=== PATIENT | male | born 1960 | race Caucasian/White ===

== ENCOUNTER 2021-12-15 17:34 | Day surgery (SDC) | payer OTHER, MEDICARE, SELFPAY ==
[2021-12-15] VITALS (11 sets, daily range): BP systolic 101–162; BP diastolic 58–101; PULSE 86–102; RESP 16–22; TEMP 36.2–36.6; O2SAT 93–100; BMI 28.7
--- NOTE | 2021-12-15 17:59 | ED_ITS ---
Documented by User: Patrick So MD 12/17/21 14:02 HPI - General Adult General: Chief complaint: General Medical Stated complaint: feels like something stuck in esophagus Time Seen by Provider: 12/15/21 17:45 History of Present Illness: 61-year-old male presents emergency room after experiencing foreign object sensation in the back of his throat and drooling from eating German food. Patient so that took a bite of times with think that there is piece of bone that is lodged in the back of his throat. Patient says that she is no longer able to swallow. Patient reports mild shortness of breath. Patient while in the emergency room coughed up a piece of the bone. No signs of hemoptysis, or hematemesis. Patient continued to be satting well. Has any other complaints at this time Onset: 30 minutes ago Duration:ongoing Location:home Severity:moderate Associated symptoms: Deny chest pain, dyspnea, nausea, rash, palpitations or vomiting Review of Systems Const: Denies: fever(s) or chills Eyes: Denies: change in vision ENMT: Reports: other (+throat pain and drooling); Denies: mouth pain Card: Denies: chest pain or palpitations Resp: Denies: dyspnea or non-productive cough GI: Denies: abdominal pain, nausea, vomiting or diarrhea : Denies: dysuria Musc: Denies: extremity pain Skin/Breast: Denies: rash or new lesions Neuro: Denies: weakness in extremities Psych: Reports: other (Normal mood) Arron/Lymph: Denies: easy bruising PFS ED PFSH: Medical History No active medical problems Surgical History H/O esophagogastroduodenoscopy (12/15/21) disimpaction of food bolus Social History Smoking and tobacco status: never smoked Alcohol intake: never Substance/Drug Use: never Physical Exam Const: COMMON NORMALS: alert HENMT: COMMON NORMALS: atraumatic HEAD & SCALP: atraumatic MOUTH: moist mucous membranes not abnormal OTHER: +drooling, no posterior oropharygneal foreign objects Eye: COMMON NORMALS: EOMs intact bilaterally and conjunctivae normal CONJUNCTIVA: Yes conjunctivae normal Neck/C-Spine: COMMON NORMALS: full ROM and supple Resp: COMMON NORMALS: normal respiratory effort and clear to auscultation bilaterally AUSCULTATION: clear to auscultation bilaterally Cardio: COMMON NORMALS: regular rate RATE: regular rate GI: COMMON NORMALS: Soft to palpation and non-tender PALPATION: Yes Soft to palpation Extremity: COMMON NORMALS: full ROM Neuro: SENSORIUM/ORIENTATION: Yes alert MOTOR EXAM: No Abnormal motor strength present and Other motor observations present (no focal motor deficits) Psych: COMMON NORMALS: speech normal SPEECH: Yes normal speech MOOD & AFFECT: Yes euthymic mood Course Vital Signs: Vital signs: Vital Signs Temperature 97.1 F L 12/15/21 21:25 Pulse Rate 90 12/15/21 21:32 Respiratory Rate 18 12/15/21 21:32 Blood Pressure 107/72 12/15/21 21:32 Pulse Oximetry 93 12/15/21 21:32 MDM - General Adult Medical Decision Making Patient is a 61-year-old male presenting to the emergency room for concerns of foreign object sensation in the back of throat, coughing and drooling. On exam, patient has no findings in the posterior oral airway. Patient is phonating without difficulty but continues to drool. Lungs appears to be clear bilaterally did not show any signs of foreign object. Patient's airway was topicalized with 5% lidocaine via nebulization in order to visualize object in the back of the throat. Patient continues to complaint foreign object sensation in the back of the throat. I attempted a superior larygneal nerve block but decided against it without injection of anesthetics and to call Dr. Suarez for formal evaluation in the OR. Case was discussed with Dr. Suarez given ongoing drooling, coughing and evidence of coughed up fish bone. Disposition: GI lab Lab Data Radiology Impressions Chest X-Ray 12/15/21 18:37 IMPRESSION: Bibasilar atelectasis versus minimal infiltrate. Imaging Data Other Imaging: Radiologist's impression: [address] [place] [address] XRay Report Signed Patient: Giovanny Hope Unit #: [id number] : [id number] Age/Sex: 61 / M ADM Date: 12/15/21 Loc: ER Room/Bed: Attending Dr: Ordering Provider/Ordering MD: Patrick So MD Date of Service: 12/15/21 Procedure(s): XR chest 1V portable [id number] Accession Number(s): [id number] Report Number: [id number] PROCEDURE INFORMATION: Exam: XR Chest Exam date and time: 12/15/2021 6:37 PM Age: 61 years old Clinical indication: Cough; Additional info: Eval for fish bone; PT complains of something being lodged in throat causing him to cough up a lot of phlem; PT states its been happening for about an hour now TECHNIQUE: Imaging protocol: XR of the chest. Views: 1 view. COMPARISON: No relevant prior studies available. FINDINGS: Lungs: Bibasilar atelectasis versus minimal infiltrate. Pleural spaces: Unremarkable. No pleural effusion. No pneumothorax. Heart/Mediastinum: Unremarkable. No cardiomegaly. Bones/joints: Unremarkable. XR/XR chest 1V portable [id number] IMPRESSION: Bibasilar atelectasis versus minimal infiltrate. ? Dictated By: Herbert Clemente MD Signed By: Herbert Clemente MD Signed Date/Time: 12/15/211918 DD/ 183 Discharge Plan Discharge Patient Disposition: Admitted As Inpatient Clinical Impression: Feeling of foreign body in throat, Drooling Condition: Stable Discharge Diet: Advance as tolerated Discharge Activity: Resume usual activity Coding Level of Care Code ED Well Drill Operator Cable Tool for Chg Fwd Exam Comprehensive
[2021-12-15] MEDS: lidocaine 2% INJ 20 mL INJECTION (18:30)
--- NOTE | 2021-12-15 18:30 | PC.NURSE ---
DR. JACOB AT BEDSIDE. SUCTION HOOKED UP AND GIVEN TO PT TO SUCTION SECRETIONS OUT OF MOUTH. DR. JACOB REQUESTING CRASH CART AND PERIPHERAL IV BEFORE ATTEMPTING TO RETRIEVE FOOD OUT OF PT'S THROAT. DR. JACOB QUESTIONED BY THIS RN IF PT WILL BE GOING TO THE GI LAB FOR EGD, DR. JACOB STATES NOT YET. IV PLACED AND PT PLACED ON FUND RAISER. PT BREATHING EVEN AND UNLABORED. VSS. PT SUCTIONING SECRETIONS OUT OF HIS MOUTH. THIS RN LEAVES ROOM.
--- NOTE | 2021-12-15 18:37 | XRR_ITS ---
PROCEDURE INFORMATION: Exam: XR Chest Exam date and time: 12/15/2021 6:37 PM Age: 61 years old Clinical indication: Cough; Additional info: Eval for fish bone; PT complains of something being lodged in throat causing him to cough up a lot of phlem; PT states its been happening for about an hour now TECHNIQUE: Imaging protocol: XR of the chest. Views: 1 view. COMPARISON: No relevant prior studies available. FINDINGS: Lungs: Bibasilar atelectasis versus minimal infiltrate. Pleural spaces: Unremarkable. No pleural effusion. No pneumothorax. Heart/Mediastinum: Unremarkable. No cardiomegaly. Bones/joints: Unremarkable. XR/XR chest 1V portable [id number] IMPRESSION: Bibasilar atelectasis versus minimal infiltrate.
[2021-12-15] MEDS: lidocaine 4% PF 5 mL INJ INHALATION (18:45)
[2021-12-15] MEDS: LORazepam 2 mg/mL INJ 1 mL IVP (19:23)
--- NOTE | 2021-12-15 20:00 | PC.NURSE ---
THIS RN AT BEDSIDE REASSESSING PT. PT HR 120'S, PT SEEMS TIRED. BREATHING LABORED BUT EVEN. AT BEDSIDE ASKING WHEN PT WILL BE GOING TO THE GI LAB FOR FOOD BOLUS EXTRACTION; THIS RN LEAVES ROOM TO ASK DR. JACOB WHEN PT WILL BE GOING TO GI LAB, DR JACOB STATES NOT YET. GIVE ME A MINUTE. THIS RN RETURNS TO ROOM, BP AND SAO2 STABLE, PT REPOSITIONED IN BED FOR COMFORT. DR. JACOB AT BEDSIDE WITH LIDOCAINE. DR. JACOB STATING TO PT HE IS GOING TO DO A NERVE BLOCK TO NECK. DR. JACOB BEGINS INJECTION, PT TOLERATING INJECTION FAIR. FABIENNE RN AT BEDSIDE. THIS RN LEAVES ROOM.
--- NOTE | 2021-12-15 20:48 | ANES.PREANE2 ---
Pre-Anesthetic Assessment Height/Weight: Height 1.8 m Weight 93.44 kg Temp Pulse Resp BP Pulse Ox 97.9 F 87 16 162/95 93 12/15/21 17:41 12/15/21 20:36 12/15/21 20:36 12/15/21 20:36 12/15/21 20:36 Preop Diagnosis: Esophageal foreign body Operation Date: 12/15/21 20:45 Proposed Procedures p Foreign Body Removal(Not Applicable) - Tim Suarez MD Familial anesthetic complications: None Was Beta Kathe taken within 24 hours: N/A Was Clonidine taken within 24 hours: N/A Last intake: 6:30 pm 12/15/2021 Social Tobacco and No alcohol Exam alert, oriented x 3, clear to auscultation bilaterally and regular rate & rhythm Airway Submandibular: within normal limits Cervical ROM: within normal limits Mallampati: Class III Dentition: false History/ROS No significant history except as noted Pulmonary Chronic Obstructive Pulmonary Disease and Exertional Dyspnea CV/HEM Arrythmia Denies AR, CAD, CHF, afib, anticoagulation METS < 4 None reported Hepatic None reported GI Gastroesophageal Reflux Disease Metabolic None reported Musc/skel None reported Neuropsych Cerebrovascular Accident (Denies residual sequelae ) Anesthetic Plan ASA status: 3E (61 year old male smoker with reduced functional capacity with acute food bolus and hx of CVA) Anesthesia: Anesthesia Evaluation and General Other: We discussed risk and benefits of general anesthesia including PONV, sore throat (sometimes severe), corneal abrasion, positioning and peripheral nerve injuries, life threatening allergic reaction, post operative ICU admission requiring prolonged intubation, stroke, heart attack, , and rare incidences of recall. Patient consents to proceed with general anesthesia. Risk of > 500 ml blood loss (7ml/kg in children): No Medications/Allergies Home Medications Medication Instructions Recorded Confirmed Last Taken Type No Known Home Medications 12/15/21 12/15/21 Unknown History Allergies Allergy/AdvReac Type Severity Reaction Status Date / Time gluten Allergy ALGY-Anaphy Verified 12/15/21 18:53 laxis [facility] Anesthesia Medical History No active medical problems Social History Smoking and tobacco status: never smoked Alcohol intake: never Substance/Drug Use: never Data Anesthesia Cardiac Studies: No Data to Display
[2021-12-15] MEDS: sodium chloride 0.9% 1,000 ML 30 ML IV (20:49)
--- NOTE | 2021-12-15 20:52 | ANE.PACU2 ---
Inpatient post-anesthesia follow up: Vital signs: Temperature 97.9 F Pulse Rate 87 Respiratory Rate 16 Blood Pressure 162/95 Pulse Oximetry 93 Oxygen Delivery Me thod Nasal Cannula Oxygen Flow Rate 2 Fraction of Inspir ed Oxygen
--- NOTE | 2021-12-15 21:07 | PM.HP ---
Providers/Chief Complaint Admitting Physician: Dr. Suarze Chief Complaint: Esophageal obstruction due to food impaction History of Present Illness Giovanny Hope is a 61 year old male who presented to the ER with sensation of food being stuck in his throat and inability to swallow. Patient denies any similar episodes in the past. Patient is edentulous and was not wearing his dentures today. He has history of GERD but is not on any medications. He denies any chest pain, abdominal pain or hematemesis though he did have some vomiting. He thinks that he vomited a piece of meat earlier in the ER Review of Systems General: Reports: 10 or more systems reviewed and unremarkable except in HPI and below Medications/Allergies Home Medications Medication Instructions Recorded Confirmed Last Taken Type No Known Home Medications 12/15/21 12/15/21 Unknown History Allergies Allergy/AdvReac Type Severity Reaction Status Date / Time gluten Allergy ALGY-Anaphy Verified 12/15/21 18:53 laxis PFSH Acute PFSH: Medical History No active medical problems Surgical History H/O esophagogastroduodenoscopy (12/15/21) disimpaction of food bolus Social History Smoking and tobacco status: never smoked Alcohol intake: never Substance/Drug Use: never Vitals/I&O/Wt Last Vital Signs Temp 97.9 F 12/15/21 17:41 Pulse 87 12/15/21 20:36 Resp 16 12/15/21 20:36 BP 162/95 12/15/21 20:36 Pulse Ox 93 12/15/21 20:36 Weight last 48 hrs Weight 206 lb Physical Exam Narrative: HEENT: Normocephalic Eye: Sclera /conjunctiva normal Abdomen: Soft to palpation Neurological: Oriented to place person and time Skin: Intact, no lesions appreciated on gross exam A&P Assessment and plan (1) Esophageal obstruction due to food impaction: 61-year-old male who presents to the ER with complaints of inability to swallow any saliva, vomiting after he felt a piece of meat getting stuck in his esophagus. He denies any chest pain or abdominal pain and is hemodynamically stable. Plan for EGD with disimpaction of food bolus under general anesthesia. Procedure, risks, benefits and alternatives have been discussed with the patient who wishes to proceed with surgery. Status: Acute Attestations Medical Necessity Statement*: esophageal obstruction due to food impaction Coding Level of Care Code Acute Pharmaceutical Compounding Supervisor for Chg Fwd Diagnoses Esophageal obstruction due to food impaction K22.2; T18.128A
--- NOTE | 2021-12-16 08:49 | ANE.PACU2 ---
Inpatient post-anesthesia follow up: Airway intact: Yes Vital signs: Temperature 97.1 F Pulse Rate 90 Respiratory Rate 18 Blood Pressure 107/72 Pulse Oximetry 93 Oxygen Delivery Me thod Room Air Oxygen Flow Rate 6 Fraction of Inspir ed Oxygen Hydration adequate: Yes Nausea and vomiting: No Pain level: 1 Mental status: Baseline
== END 2021-12-15 21:35 | disposition home or self-care (01) ==
LOC: ER 20:18 → GILAB 20:39
PROVIDERS: Emergency Provider Emergency Medicine; Visit Provider Surgery
PROC: 0DJ08ZZ Inspection of Upper Intestinal Tract, Via Natural or Artificial Opening Endoscopic (ICD-10-PCS; CPT 43235; 2021-12-15 20:45)
DX: T18.128A Food in esophagus causing other injury, initial encounter (principal); K22.2 Esophageal obstruction; K21.9 Gastro-esophageal reflux disease without esophagitis; J44.9 Chronic obstructive pulmonary disease, unspecified; Z86.73 Personal history of transient ischemic attack (TIA), and cerebral infarction without residual deficits
CPT/HCPCS: 43247; 71045; 94640; J0330; J2060; J2704; J7030